=== PATIENT | female | born 1930 | race Hispanic/Latino ===

== ENCOUNTER 2018-08-27 17:25 | Observation (INO) | payer MEDICARE ==
[2018-08-27 17:26] VITALS: BMI 21.3
--- NOTE | 2018-08-27 18:16 | ED PDOC ---
Arrival/HPI - General Chief Complaint: GI Problem Time Seen by Provider: 08/27/18 17:36 Historian: Patient - History of Present Illness Narrative History of Present Illness (Text): 08/27/18 17:36 Yesenia Leahy is a 87 year female, with past medical history of hypertension, hyperlipidemia, vertigo, and hypothyroidism, who presents to the emergency department complaining of sudden onset dizziness occuring 3 hours CATCHER PLUG. Patient's daughter informs that patient first had abdominal pain which was followed by dizziness. Patient's daughter then states patient had vomiting and diarrhea after eating ice cream and pringles. Patient was covered in diarrhea and vomit when found by patient's daughter. Patient herself states she had flank pain, which was followed by dizziness, after which patient had vomiting and diarrhea after consuming ice cream and pringles. Patient states that she was unable to get out of bed due to dizziness. Patient states dizziness felt like vertigo, but did not get worse with certain head positions or movement. Patient informs symptoms have currently resolved in the emergency department. Patient does not live in a half-way. Patient does not take any blood thinners but takes aspirin and thyroid medications. No dark or bloody stool. Patient denies sick contact, traveling abroad, head injury, fall, visual changes, fevers, chills, night sweats, headache, back pain, neck pain, or any other complaint. 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) - Renal Hx Renal Disorder: No - Endocrine/Metabolic Hx Endocrine Disorders: Yes Hx Hypothyroidism: Yes - Hematological/Oncological Hx Blood Disorders: No - Integumentary Hx Dermatological Disorder: No - Musculoskeletal/Rheumatological Hx Musculoskeletal Disorders: No Hx Falls: No - Gastrointestinal Hx Gastrointestinal Disorders: Yes (Gastroenteritis) - Genitourinary/Gynecological Hx Genitourinary Disorders: No - Psychiatric Hx Psychophysiologic Disorder: Yes (Insomnia) Hx Substance Use: No - Anesthesia Hx Anesthesia Reactions: No Hx Malignant Hyperthermia: No - Suicidal Assessment Feels Threatened In Home Enviroment: No Family/Social History - Physician Review Nursing Documentation Reviewed: Yes Family/Social History: No Known Family HX Smoking Status: Never Smoked Hx Alcohol Use: No Hx Substance Use: No Hx Substance Use Treatment: No Allergies/Home Meds Allergies/Adverse Reactions: Allergies No Known Allergies Allergy (Verified 11/01/15 19:29) Home Medications: Home Meds Medication Instructions Recorded Confirmed Levothyroxine Sodium 88 mcg PO DAILY 04/13/13 11/02/15 [Levothyroxine] Zolpidem [Ambien] 5 mg PO HS 04/13/13 11/01/15 Amlodipine Besylate 5 mg PO DAILY 11/01/15 11/02/15 Pravastatin Sodium 20 mg PO DAILY 11/01/15 11/01/15 Vitamin D 1000 IU 1,000 iu PO DAILY 11/01/15 11/01/15 Meclizine HCl [Antivert/25] 25 mg PO TID 11/02/15 11/02/15 Review of Systems - Physician Review All systems were reviewed & negative as marked: Yes - Review of Systems Constitutional: absent: Fatigue, Weight Change, Fevers, Night Sweats Eyes: absent: Vision Changes, Photophobia, Eye Pain ENT: absent: Hearing Changes, Tinnitus, TMJ Pain Respiratory: absent: SOB, Cough, Sputum Cardiovascular: absent: Chest Pain, Palpitations, Edema, Calf Pain, LEN[place], Orthopnea Gastrointestinal: Abdominal Pain (stated by daughter), Diarrhea, Nausea, Vomiting, Other (Flank pain stated by patient). absent: Constipation, Hematochezia, Hematemesis, Anorexia Genitourinary Female: absent: Dysuria, Frequency, Hematuria Musculoskeletal: absent: Back Pain, Neck Pain, Other (head injury) Neurological: Dizziness (vertigo earlier) Physical Exam Vital Signs Reviewed: Yes Temperature: Afebrile Blood Pressure: Normal Pulse: Regular Respiratory Rate: Normal Appearance: Positive for: Well-Appearing, Non-Toxic, Comfortable Pain Distress: None Mental Status: Positive for: Alert and Oriented X 3 - Systems Exam Head: Present: Atraumatic, Normocephalic Pupils: Present: PERRL Extroacular Muscles: Present: EOMI Conjunctiva: Present: Normal Ears: Present: Normal. No: Erythema Mouth: Present: Moist Mucous Membranes Pharnyx: Present: Normal. No: ERYTHEMA, EXUDATE Nose (Internal): Present: Normal Inspection. No: Septal Hematoma Neck: Present: Normal Range of Motion. No: Meningeal Signs, MIDLINE TENDERNESS Respiratory/Chest: Present: Clear to Auscultation, Good Air Exchange. No: Respiratory Distress, Accessory Muscle Use Cardiovascular: Present: Regular Rate and Rhythm, Normal S1, S2. No: Murmurs Abdomen: No: Tenderness Back: Present: Normal Inspection. No: CVA Tenderness, Midline Tenderness Upper Extremity: Present: Normal Inspection, NORMAL PULSES, Neurovascularly Intact. No: Cyanosis, Edema Lower Extremity: Present: Normal Inspection, NORMAL PULSES, Neurovascularly Intact. No: Edema, CALF TENDERNESS Neurological: Present: GCS=15, CN II-XII Intact, Speech Normal, Motor Func Grossly Intact, Normal Sensory Function, Normal Cerebellar Funct Skin: Present: Warm, Dry, Normal Color. No: Rashes Psychiatric: Present: Alert, Oriented x 3, Normal Insight, Normal Concentration Medical Decision Making ED Course and Treatment: 08/27/18 17:36 Impression: Patient is an 87 year old female who presents to the emergency department with complaints of sudden onset dizziness 3 hours CATCHER PLUG. Pt states symptoms like vertigo, but did not get worse with head movement. No signs of posterior stroke on exam as symptoms have resolved. Normal neuro exam, largely non-ttp abdomen. No dark or bloody stool. No fall or trauma. Differential Diagnosis included but are not limited to: Posterior stroke, gastroenteritis, colitis Plan: -- CT Head w/o contrast -- Chest X-Ray -- Labs -- EKG -- Reglan -- IV Fluids -- Reassess and disposition Prior Visits: Notes and results from previous visits were reviewed. Progress Notes: 08/27/18 18:00 Code Stroke 08/27/18 18:19 NIHSS 0 No tPA at this time given symptoms resolved. Normal neuro exam. 08/27/18 19:06 CT H w/ out bleed or visible ischemic stroke. Appreciate consult w/ Dr. Izquierdo: requesting CTA head and neck and ASA. Pt notes she took her ASA this morning. Reviewed EKG, shows: NSR at 80 BPM. No STEMI 08/27/18 20:57 UTI, rx w/ cipro. no CVAT or midline tenderness. Xray chest unremarkable per my read Paged Dr. Galeana for admission 08/27/18 20:58 Pending CTA read 08/27/18 21:22 CT non-con abd w/ diverticulitis, will add flagyl CTA largely unremarkable except pulmonary nodule appreciate consult w/ Dr. Galeana: to admit to medicine service Pt in NAD, agreeable to admission - RAD Interpretation Radiology Orders: 08/27/18 18:05 CHEST PORTABLE [RAD] Stat - Medication Orders Current Medication Orders: Sodium Chloride (Sodium Chloride 0.9%) 1,000 mls @ 100 mls/hr IV .Q10H DUNCAN Discontinued Medications Metoclopramide HCl (Reglan) 10 mg IVP STAT STA Stop: 08/27/18 18:02 NIHSS Scale ([place]) Time Performed: 18:15 - How Severe is the Stoke Baseline Level of Consciousness: 0=Alert LOC to Questions: 0=Both comments correct LOC to commands: 0=Obeys both correctly Best Gaze: 0=Normal Visual: 0=No visual loss Facial: 0=Normal Motor Arm - Left: 0=No drift Motor Arm - Right: 0=No drift Motor Leg - Left: 0=No drift Motor Leg - Right: 0=No drift Limb Ataxia: 0=Absent Sensory: 0=Normal Best Language: 0=No aphasia Dysarthia: 0=Normal articulation Extinction & Inattention (Neglect): 0=Normal, no object Score: 0 Risk Level: No Stroke Risk rTPA Inclusion/Exclusion - Refusal of Treatment Patient Refused Treatment: No - Inclusion Criteria for Altepase Patient is 18 years or Older: Yes The Clinical Diagnosis of Ischemic Stroke That is Causing a Potentially Disabling Neurological Deficit: No Time of Onset is Well Established to be Less Than 270 Minute Before Treatment Would Begin: Yes Risk/Benefit Discussed With Patient/Family Member Present: Yes - Scribe Statement The provider has reviewed the documentation as recorded by the Scribe Mark Mcneal All medical record entries made by the Scribe were at my direction and personally dictated by me. I have reviewed the chart and agree that the record accurately reflects my personal performance of the history, physical exam, medical decision making, and the department course for this patient. I have also personally directed, reviewed, and agree with the discharge instructions and disposition. Disposition/Present on Arrival - Present on Arrival Any Indicators Present on Arrival: No History of DVT/PE: No History of Uncontrolled Diabetes: No Urinary Catheter: No History of Decub. Ulcer: No History Surgical Site Infection Following: CABG - Mediastinitis, None - Disposition Have Diagnosis and Disposition been Completed?: Yes Diagnosis: Vertigo, Acute diverticulitis, UTI (urinary tract infection) Disposition Time: 21:28 Condition: STABLE Referrals: Bne Galarza MD [Primary Care Provider] - Follow up with primary Forms: [employer]Less (Italian)
[2018-08-27 18:25] LABS: BASO # 0.05 K/mm3 (0.0-2.0); BASO % 0.4 % (0.0-3.0); EOS % 0.4 % (1.5-5.0); HEMOGLOBIN 12.9 g/dL (12.0-16.0); LYMPH # 1.5 (1.2-3.4); LYMPH % 13.3 % (22.0-35.0); MEAN CELL VOLUME 88.6 fl (80.0-105.0); MEAN CORPUSCULAR HEMOGLOBIN 29.5 pg (25.0-35.0); MEAN CORPUSCULAR HGB CONC 33.2 g/dl (31.0-37.0); MEAN PLATELET VOLUME 9.2 fl (7.0-11.0); MONO # 0.8 (0.1-0.6); MONO % 7.2 % (1.0-6.0); RBC 4.38 10^6/uL (3.5-6.1); RED CELL DISTRIBUTION WIDTH 13.2 % (11.5-14.5); WHITE BLOOD COUNT 11.3 10^3/uL (4.5-11.0)
[2018-08-27 18:32] LABS: ALB/GLOB RATIO 1.3 (1.1-1.8); ALBUMIN 5.2 g/dL (3.0-4.8); ALT/SGPT 16 U/L (7-56); AST/SGOT 33 U/L (14-36); BLOOD UREA NITROGEN 14 mg/dL (7-21); CALCIUM 9.9 mg/dL (8.4-10.5); GFR NON-AFRICAN AMERICAN > 60; LIPASE 154 U/L (23-300)
[2018-08-27 18:34] LABS: VENOUS BLOOD GAS BASE EXCESS 3.2 mmol/L (0.0-2.0); VENOUS BLOOD GAS PO2 46 mm/Hg (30-55); VENOUS BLOOD PH 7.36 (7.32-7.43)
--- NOTE | 2018-08-27 18:36 | CT ---
Date of service: 08/27/2018 PROCEDURE: CT HEAD WITHOUT CONTRAST. HISTORY: Code Stroke COMPARISON: 11/01/2015. CT head. 11/02/2015 MRI brain TECHNIQUE: Axial computed tomography images were obtained through the head/brain without intravenous contrast. Supplemental Coronal and Sagittal projections created and reviewed. Radiation dose: Total exam DLP = <inf_radiation_dlp> mGy-cm. This CT exam was performed using one or more of the following dose reduction techniques: Automated exposure control, adjustment of the mA and/or kV according to patient size, and/or use of iterative reconstruction technique. FINDINGS: HEMORRHAGE: No intracranial hemorrhage. BRAIN: No mass effect or edema. Cortical and cerebellar atrophy, periventricular small vessel disease. VENTRICLES: Unremarkable. No hydrocephalus. CALVARIUM: Unremarkable. PARANASAL SINUSES: Unremarkable as visualized. No significant inflammatory changes. MASTOID AIR CELLS: Unremarkable as visualized. No inflammatory changes. OTHER FINDINGS: None. IMPRESSION: No acute intracranial abnormalities. No significant findings to account for the clinical presentation. No significant interval change compared to the prior examination(s). Code stroke protocol: Study completed 18:23. Radiologist notified 18:26. Results conveyed verbally at 18:29. Interpretation finalized and available for review 18:32.
[2018-08-27 18:43] LABS: INR 1.11; PARTIAL THROMBOPLASTIN TIME 33.3 Seconds (26.9-38.3); PROTHROMBIN TIME 12.3 SECONDS (9.4-12.5)
[2018-08-27] MEDS: Sodium Chloride 0.9% 1,000 ML IV SCH (18:59)
[2018-08-27 19:22] LABS: PH,URINE 7.5 (4.7-8.0); URINE APPEARANCE CLEAR (CLEAR); URINE BILIRUBIN NEGATIVE (NEGATIVE); URINE BLOOD NEGATIVE (NEGATIVE); URINE COLOR YELLOW (YELLOW); URINE GLUCOSE (UA) NEGATIVE (NEGATIVE); URINE LEUKOCYTE ESTERASE SMALL Leu/uL (NEGATIVE); URINE PROTEIN NEGATIVE mg/dL (<30 mg/dL); URINE UROBILINOGEN 0.2 E.U./dL (<1 E.U./dL)
[2018-08-27 19:31] LABS: TROPONIN I < 0.01 ng/mL
[2018-08-27 19:44] LABS: URINE AMORPHOUS SEDIMENT TRACE /hpf
[2018-08-27] MEDS ORDERED: Ciprofloxacin 400mg/200ml D5W 400 MG/200 ML BAG IVPB STA (19:48)
[2018-08-27] MEDS ORDERED: Iohexol 350 MG/100 ML VIAL ONE (19:49)
--- NOTE | 2018-08-27 21:10 | CP.PCM.HP ---
<MichealPrimitivo - Last Filed: 08/28/18 03:27> History of Present Illness - History of Present Illness History of Present Illness: Primitivo Burton, PGY1 Medicine H&P for Dr. Galeana cc: "dizziness with nausea, vomiting, diarrhea" Patient is a 87 year female with PMHx of hypertension, hyperlipidemia, vertigo, and hypothyroidism, who presents to the emergency department complaining of sudden onset dizziness with associated nausea, vomiting, diarrhea earlier today. Patient was covered in diarrhea and vomit when found by the patient's daughter. Medical team evaluated patient in the ED. Daughter was present at bedside. Patient is awake, alert, and oriented x3. She said her episodes started at 3 pm when she was watching television. Vomiting was non-bilious and non-bloody. She did not have any chest pain, shortness of breath, abdominal pain, back pain, fever, chills, urinary frequency/urgency/dysuria. She does not have any sick contacts. In the ED, her symptoms resolved. She has not had any further episodes of vomiting or diarrhea. She denies any recent antibiotic use. Patient had previous admission in 2016 for vertigo and was discharged on meclizine which she stopped taking after one week because her symptoms resolved. A full 12 point ROS was conducted and unremarkable except as stated above. PMD: [place] PMHx: hypertension, hyperlipidemia, vertigo, and hypothyroidism PSHx: denies Meds: see MAR Allergies: NKDA SocialHx: denies smoking, EtOH, illicit drug use. Lives at home with daughter. FamHx: non-contributory Present on Admission - Present on Admission Any Indicators Present on Admission: No Review of Systems - Review of Systems All systems: reviewed and no additional remarkable complaints except (as per HPI.) Past Patient History - Infectious Disease Hx of Infectious Diseases: None - Tetanus Immunizations Tetanus Immunization: Unknown - Past Social History Smoking Status: Never Smoked - CARDIAC Hx Cardiac Disorders: Yes Hx Hypertension: Yes - PULMONARY Hx Respiratory Disorders: No (SMOKED CIGARETTES A TEENAGER) - NEUROLOGICAL Hx Neurological Disorder: Yes Hx Dizziness: Yes (5-2-16) - HEENT Hx HEENT Problems: Yes Hx Deafness: Yes (RIGHT EAR,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) - RENAL Hx Chronic Kidney Disease: No - ENDOCRINE/METABOLIC Hx Endocrine Disorders: Yes Hx Hypothyroidism: Yes - HEMATOLOGICAL/ONCOLOGICAL Hx Blood Disorders: No - INTEGUMENTARY Hx Dermatological Problems: No - MUSCULOSKELETAL/RHEUMATOLOGICAL Hx Musculoskeletal Disorders: No Hx Falls: No - GASTROINTESTINAL Hx Gastrointestinal Disorders: Yes (Gastroenteritis) - GENITOURINARY/GYNECOLOGICAL Hx Genitourinary Disorders: No - PSYCHIATRIC Hx Psychophysiologic Disorder: Yes (Insomnia) Hx Substance Use: No - SURGICAL HISTORY Hx Surgeries: No (Denies) - ANESTHESIA Hx Anesthesia Reactions: No Hx Malignant Hyperthermia: No Meds Allergies/Adverse Reactions: Allergies Allergy/AdvReac Type Severity Reaction Status Date / Time No Known Allergies Allergy Verified 11/01/15 19:29 Physical Exam - Constitutional Appears: No Acute Distress - Head Exam Head Exam: ATRAUMATIC, NORMAL INSPECTION, NORMOCEPHALIC - Eye Exam Eye Exam: EOMI, Normal appearance Pupil Exam: NORMAL ACCOMODATION - ENT Exam ENT Exam: Mucous Membranes Moist - Respiratory Exam Respiratory Exam: Clear to Auscultation Bilateral, NORMAL BREATHING PATTERN. absent: Accessory Muscle Use, Chest Wall Tenderness, Rales, Rhonchi, Wheezes - Cardiovascular Exam Cardiovascular Exam: RRR, +S1, +S2 - GI/Abdominal Exam GI & Abdominal Exam: Normal Bowel Sounds, Soft. absent: Distended, Firm, Guarding, Rebound, Rigid, Tenderness Additional comments: No suprapubic tenderness - Extremities Exam Extremities exam: Positive for: full ROM, normal capillary refill, normal inspection, pedal pulses present - Back Exam Back exam: NORMAL INSPECTION. absent: CVA tenderness (L), CVA tenderness (R) - Neurological Exam Neurological exam: Alert, CN II-XII Intact, Oriented x3 - Psychiatric Exam Psychiatric exam: Normal Affect, Normal Mood - Skin Skin Exam: Dry, Intact, Normal Color, Warm Results - Vital Signs Recent Vital Signs: Last Vital Signs Temp 95 F L 08/27/18 18:19 Pulse 77 08/27/18 19:30 Resp 17 08/27/18 19:30 BP 117/89 08/27/18 19:30 Pulse Ox 98 08/27/18 19:30 - Labs Result Diagrams: 08/27/18 18:15 08/27/18 18:15 Labs: Laboratory Results - last 24 hr 08/27/18 08/27/18 08/27/18 17:59 18:15 18:15 WBC 11.3 H RBC 4.38 Hgb 12.9 Hct 38.8 MCV 88.6 MCH 29.5 MCHC 33.2 RDW 13.2 Plt Count 239 MPV 9.2 Neut % (Auto) 78.7 H Lymph % (Auto) 13.3 L [place] % (Auto) 7.2 H Eos % (Auto) 0.4 L Baso % (Auto) 0.4 Lymph # (Auto) 1.5 [place] # (Auto) 0.8 H Eos # (Auto) 0.0 Baso # (Auto) 0.05 Absolute Neuts (auto) 8.89 H PT INR APTT pO2 VBG pH VBG pCO2 VBG HCO3 VBG Total CO2 VBG O2 Sat (Calc) VBG Base Excess VBG Potassium Sodium 140 Chloride 101 Glucose Lactate FiO2 Potassium 3.2 L Carbon Dioxide 30 Anion Gap 13 BUN 14 Creatinine 0.6 L Est GFR ( Amer) > 60 Est GFR (Non-Af Amer) > 60 POC Glucose (mg/dL) 142 H Random Glucose 155 H Calcium 9.9 Magnesium 2.0 Total Bilirubin 0.5 AST 33 ALT 16 Alkaline Phosphatase 85 Troponin I < 0.01 Total Protein 9.0 H Albumin 5.2 H Globulin 3.8 Albumin/Globulin Ratio 1.3 Lipase 154 TSH 3rd Generation Venous Blood Potassium Urine Color Urine Appearance Urine pH Ur Specific [place] Urine Protein Urine Glucose (UA) Urine Ketones Urine Blood Urine Nitrate Urine Bilirubin Urine Urobilinogen Ur Leukocyte Esterase Urine RBC Urine WBC Ur Epithelial Cells Amorphous Sediment Influenza Typ A,B (EIA) 08/27/18 08/27/18 08/27/18 18:15 18:15 18:28 WBC RBC Hgb Hct MCV MCH MCHC RDW Plt Count MPV Neut % (Auto) Lymph % (Auto) [place] % (Auto) Eos % (Auto) Baso % (Auto) Lymph # (Auto) [place] # (Auto) Eos # (Auto) Baso # (Auto) Absolute Neuts (auto) PT 12.3 INR 1.11 APTT 33.3 pO2 46 VBG pH 7.36 VBG pCO2 53.0 VBG HCO3 29.9 H VBG Total CO2 31.5 H VBG O2 Sat (Calc) 85.6 H VBG Base Excess 3.2 H VBG Potassium 3.2 L Sodium 143.0 Chloride 103.0 Glucose 153 H Lactate 1.4 FiO2 21.0 Potassium Carbon Dioxide Anion Gap BUN Creatinine Est GFR ( Amer) Est GFR (Non-Af Amer) POC Glucose (mg/dL) Random Glucose Calcium Magnesium Total Bilirubin AST ALT Alkaline Phosphatase Troponin I Total Protein Albumin Globulin Albumin/Globulin Ratio Lipase TSH 3rd Generation 1.58 Venous Blood Potassium 3.2 L Urine Color Urine Appearance Urine pH Ur Specific [place] Urine Protein Urine Glucose (UA) Urine Ketones Urine Blood Urine Nitrate Urine Bilirubin Urine Urobilinogen Ur Leukocyte Esterase Urine RBC Urine WBC Ur Epithelial Cells Amorphous Sediment Influenza Typ A,B (EIA) 08/27/18 08/27/18 19:10 19:57 WBC RBC Hgb Hct MCV MCH MCHC RDW Plt Count MPV Neut % (Auto) Lymph % (Auto) [place] % (Auto) Eos % (Auto) Baso % (Auto) Lymph # (Auto) [place] # (Auto) Eos # (Auto) Baso # (Auto) Absolute Neuts (auto) PT INR APTT pO2 VBG pH VBG pCO2 VBG HCO3 VBG Total CO2 VBG O2 Sat (Calc) VBG Base Excess VBG Potassium Sodium Chloride Glucose Lactate FiO2 Potassium Carbon Dioxide Anion Gap BUN Creatinine Est GFR ( Amer) Est GFR (Non-Af Amer) POC Glucose (mg/dL) Random Glucose Calcium Magnesium Total Bilirubin AST ALT Alkaline Phosphatase Troponin I Total Protein Albumin Globulin Albumin/Globulin Ratio Lipase TSH 3rd Generation Venous Blood Potassium Urine Color Yellow Urine Appearance Clear Urine pH 7.5 Ur Specific [place] 1.020 Urine Protein Negative Urine Glucose (UA) Negative Urine Ketones 15 H Urine Blood Negative Urine Nitrate Negative Urine Bilirubin Negative Urine Urobilinogen 0.2 Ur Leukocyte Esterase Small H Urine RBC None Urine WBC 10 - 15 H Ur Epithelial Cells 10 - 12 H Amorphous Sediment Trace Influenza Typ A,B (EIA) Negative for flu a/b Assessment & Plan - Assessment and Plan (Free Text) Assessment: Patient is a 87 year female, with PMHx of hypertension, hyperlipidemia, vertigo, and hypothyroidism, who presented to the emergency department complaining of sudden onset dizziness with associated nausea, vomiting, diarrhea earlier today. Patient will be admitted for vertigo. Plan: Vertigo - Symptoms resolved in the ED - orthostatic vital signs - echo - Neurochecks q4 - fall and seizure precautions - trend trops q6 - Code stroke in ED - Passed swallow eval - PT - resume aspirin 81mg PO daily home med - Neuro on consult (Dr. Izquierdo) - f/u Head/Neck CTA - Head CT: no acute abnormalities SIRS Criteria Met, Possible UTI - SIRS met with low temperature and mildly elevated leukocytosis on admission (wbc 11.3) - Initial temp was 95 in ED; improved to 97.8 most recent. Maintain normothermia. - Vomiting and diarrhea resoled in the ED - blood cx - urine cx - morning labs - NS maintenance IVF - Given cipro and flagyl in ED; c/w cipro IVPB q12 - UA: 10-15 wbc, 10-12 epithelial (contaminated), small LE - flu negative - f/u CT A/P - CXR: no consolidation or infiltrate - EKG: NSR at 80 bpm. QTc 491. Will avoid zofran at this time due to prolonged QT. Hypokalemia 2/2 vomiting - replete Potassium as needed - K 3.2 in ED HTN - resume norvasc 10mg PO daily home med HLD - resume lipitor 10mg PO qHS home med - lipid panel Hypothyroidism - resume synthroid home med DVT ppx: hep sc GI ppx: PTX 40mg PO daily Diet: HHD Dispo: Monitor patient on tele. Case was discussed and reviewed with Attending Physician, Dr. Galeana <Maureen Galeana - Last Filed: 08/28/18 05:38> Results - Vital Signs Recent Vital Signs: Last Vital Signs Temp 97.8 F 08/28/18 00:01 Pulse 67 08/28/18 02:00 Resp 18 08/28/18 00:01 BP 139/80 08/28/18 00:01 Pulse Ox 98 08/28/18 00:01 - Labs Result Diagrams: 08/27/18 18:15 08/27/18 18:15 Labs: Laboratory Results - last 24 hr 08/27/18 08/27/18 08/27/18 17:59 18:15 18:15 WBC 11.3 H RBC 4.38 Hgb 12.9 Hct 38.8 MCV 88.6 MCH 29.5 MCHC 33.2 RDW 13.2 Plt Count 239 MPV 9.2 Neut % (Auto) 78.7 H Lymph % (Auto) 13.3 L [place] % (Auto) 7.2 H Eos % (Auto) 0.4 L Baso % (Auto) 0.4 Lymph # (Auto) 1.5 [place] # (Auto) 0.8 H Eos # (Auto) 0.0 Baso # (Auto) 0.05 Absolute Neuts (auto) 8.89 H PT INR APTT pO2 VBG pH VBG pCO2 VBG HCO3 VBG Total CO2 VBG O2 Sat (Calc) VBG Base Excess VBG Potassium Sodium 140 Chloride 101 Glucose Lactate FiO2 Potassium 3.2 L Carbon Dioxide 30 Anion Gap 13 BUN 14 Creatinine 0.6 L Est GFR ( Amer) > 60 Est GFR (Non-Af Amer) > 60 POC Glucose (mg/dL) 142 H Random Glucose 155 H Calcium 9.9 Magnesium 2.0 Total Bilirubin 0.5 AST 33 ALT 16 Alkaline Phosphatase 85 Troponin I < 0.01 Total Protein 9.0 H Albumin 5.2 H Globulin 3.8 Albumin/Globulin Ratio 1.3 Lipase 154 TSH 3rd Generation Venous Blood Potassium Urine Color Urine Appearance Urine pH Ur Specific [place] Urine Protein Urine Glucose (UA) Urine Ketones Urine Blood Urine Nitrate Urine Bilirubin Urine Urobilinogen Ur Leukocyte Esterase Urine RBC Urine WBC Ur Epithelial Cells Amorphous Sediment Influenza Typ A,B (EIA) 08/27/18 08/27/18 08/27/18 18:15 18:15 18:28 WBC RBC Hgb Hct MCV MCH MCHC RDW Plt Count MPV Neut % (Auto) Lymph % (Auto) [place] % (Auto) Eos % (Auto) Baso % (Auto) Lymph # (Auto) [place] # (Auto) Eos # (Auto) Baso # (Auto) Absolute Neuts (auto) PT 12.3 INR 1.11 APTT 33.3 pO2 46 VBG pH 7.36 VBG pCO2 53.0 VBG HCO3 29.9 H VBG Total CO2 31.5 H VBG O2 Sat (Calc) 85.6 H VBG Base Excess 3.2 H VBG Potassium 3.2 L Sodium 143.0 Chloride 103.0 Glucose 153 H Lactate 1.4 FiO2 21.0 Potassium Carbon Dioxide Anion Gap BUN Creatinine Est GFR ( Amer) Est GFR (Non-Af Amer) POC Glucose (mg/dL) Random Glucose Calcium Magnesium Total Bilirubin AST ALT Alkaline Phosphatase Troponin I Total Protein Albumin Globulin Albumin/Globulin Ratio Lipase TSH 3rd Generation 1.58 Venous Blood Potassium 3.2 L Urine Color Urine Appearance Urine pH Ur Specific [place] Urine Protein Urine Glucose (UA) Urine Ketones Urine Blood Urine Nitrate Urine Bilirubin Urine Urobilinogen Ur Leukocyte Esterase Urine RBC Urine WBC Ur Epithelial Cells Amorphous Sediment Influenza Typ A,B (EIA) 08/27/18 08/27/18 08/28/18 19:10 19:57 00:50 WBC RBC Hgb Hct MCV MCH MCHC RDW Plt Count MPV Neut % (Auto) Lymph % (Auto) [place] % (Auto) Eos % (Auto) Baso % (Auto) Lymph # (Auto) [place] # (Auto) Eos # (Auto) Baso # (Auto) Absolute Neuts (auto) PT INR APTT pO2 VBG pH VBG pCO2 VBG HCO3 VBG Total CO2 VBG O2 Sat (Calc) VBG Base Excess VBG Potassium Sodium Chloride Glucose Lactate FiO2 Potassium Carbon Dioxide Anion Gap BUN Creatinine Est GFR ( Amer) Est GFR (Non-Af Amer) POC Glucose (mg/dL) Random Glucose Calcium Magnesium Total Bilirubin AST ALT Alkaline Phosphatase Troponin I < 0.01 Total Protein Albumin Globulin Albumin/Globulin Ratio Lipase TSH 3rd Generation Venous Blood Potassium Urine Color Yellow Urine Appearance Clear Urine pH 7.5 Ur Specific [place] 1.020 Urine Protein Negative Urine Glucose (UA) Negative Urine Ketones 15 H Urine Blood Negative Urine Nitrate Negative Urine Bilirubin Negative Urine Urobilinogen 0.2 Ur Leukocyte Esterase Small H Urine RBC None Urine WBC 10 - 15 H Ur Epithelial Cells 10 - 12 H Amorphous Sediment Trace Influenza Typ A,B (EIA) Negative for flu a/b Attending/Attestation - Attestation I have personally seen and examined this patient.: Yes I have fully participated in the care of the patient.: Yes I have reviewed all pertinent clinical information: Yes Notes (Text): 08/28/18 05:21 Note: Physical exam reveals pupils that are equal and reactive. Pt seen with the resident by the bedside. Case discussed in detail. Agree with rest of documentation,assessment and plan of treatment. 08/28/18 05:22
[2018-08-27] MEDS ORDERED: metroNIDAZOLE IV 500 mg/100 ml 500 MG/100 ML BAG IVPB STA (21:28)
[2018-08-27] MEDS ORDERED: Potassium Chloride 40 mEq/30 ml LIQ UD PO ONE (22:39)
[2018-08-28] MEDS: Pantoprazole 40 mg EC Tab PO SCH (05:40)
[2018-08-28] MEDS ORDERED: Levothyroxine 50 MCG TAB PO SCH ×2 (06:00)
[2018-08-28 06:15] LABS: BASO # 0.05 K/mm3 (0.0-2.0); BASO % 0.6 % (0.0-3.0); EOS % 0.4 % (1.5-5.0); HEMOGLOBIN 12.3 g/dL (12.0-16.0); LYMPH # 1.7 (1.2-3.4); MEAN CELL VOLUME 87.9 fl (80.0-105.0); MEAN CORPUSCULAR HEMOGLOBIN 29.3 pg (25.0-35.0); MEAN CORPUSCULAR HGB CONC 33.3 g/dl (31.0-37.0); MEAN PLATELET VOLUME 9.4 fl (7.0-11.0); MONO # 0.8 (0.1-0.6); MONO % 10.2 % (1.0-6.0); RBC 4.2 10^6/uL (3.5-6.1); RED CELL DISTRIBUTION WIDTH 13.1 % (11.5-14.5); WHITE BLOOD COUNT 7.8 10^3/uL (4.5-11.0)
[2018-08-28 06:56] LABS: TROPONIN I < 0.01 ng/mL
[2018-08-28 07:00] LABS: LDL CHOLESTEROL 74 mg/dL (0-129)
[2018-08-28 07:01] LABS: ALB/GLOB RATIO 1.3 (1.1-1.8); ALBUMIN 4.5 g/dL (3.0-4.8); ALT/SGPT 13 U/L (7-56); AST/SGOT 27 U/L (14-36); BLOOD UREA NITROGEN 10 mg/dL (7-21); CALCIUM 9.6 mg/dL (8.4-10.5); GFR NON-AFRICAN AMERICAN > 60; HDL CHOLESTEROL 73 mg/dL (29-60)
--- NOTE | 2018-08-28 07:25 | CP.PCM.PN ---
<Sunday Dixon L - Last Filed: 08/28/18 17:25> Subjective - Date & Time of Evaluation Date of Evaluation: 08/28/18 Time of Evaluation: 07:25 - Subjective Subjective: Resident Progress Note for Hospitalist Service Patient examined at bedside. No acute events overnight. Patient offers no symptomatic complaints and denies any further episodes of dizziness, nausea, or vomiting. Patient also denies fevers, chills, chest pain, shortness of breath, abdominal pain, diarrhea, dysuria. Objective - Vital Signs/Intake and Output Vital Signs (last 24 hours): Temp Pulse Resp BP Pulse Ox 98.0 F 68 19 127/68 99 08/28/18 06:00 08/28/18 06:00 08/28/18 06:00 08/28/18 06:00 08/28/18 06:00 Intake and Output: 08/28/18 08/28/18 06:59 18:59 Intake Total 800 Balance 800 - Medications Medications: Current Medications Amlodipine Besylate (Norvasc) 10 mg PO DAILY [facility] Aspirin (Aspirin Chewable) 81 mg PO DAILY [facility] Atorvastatin Calcium (Lipitor) 10 mg PO DIN [facility] Heparin Sodium (Porcine) (Heparin) 5,000 units SC Q12 [facility]; Protocol Sodium Chloride (Sodium Chloride 0.9%) 1,000 mls @ 100 mls/hr IV .Q10H [facility] Last Admin: 08/27/18 18:59 Dose: 100 mls/hr Ciprofloxacin (Cipro 400mg/200ml Dsw) 400 mg in 200 mls @ 133.3 mls/hr IVPB Q12 [facility]; Protocol Stop: 08/28/18 11:31 Levothyroxine Sodium (Synthroid) 50 mcg PO QOTHERDAY@0600 [facility] Last Admin: 08/28/18 05:40 Dose: 50 mcg Levothyroxine Sodium (Synthroid) 75 mcg PO QOTHERDAY@0600 [facility] Pantoprazole Sodium (Protonix Ec Tab) 40 mg PO 0600 [facility] Last Admin: 08/28/18 05:40 Dose: 40 mg Zolpidem Tartrate (Ambien) 5 mg PO HS PRN; Protocol PRN Reason: Sleep - Labs Labs: 08/28/18 05:55 08/28/18 05:55 PT 12.3 SECONDS (9.4-12.5) 08/27/18 18:28 INR 1.11 02/26/19 18:28 APTT 33.3 Seconds (26.9-38.3) 08/27/18 18:28 - Constitutional Appears: No Acute Distress - Head Exam Head Exam: ATRAUMATIC, NORMOCEPHALIC - Eye Exam Eye Exam: EOMI, Normal appearance - ENT Exam ENT Exam: Mucous Membranes Moist - Respiratory Exam Respiratory Exam: Clear to Auscultation Bilateral, NORMAL BREATHING PATTERN. absent: Accessory Muscle Use, Rales, Rhonchi, Wheezes - Cardiovascular Exam Cardiovascular Exam: RRR, +S1, +S2. absent: Systolic Murmurs - GI/Abdominal Exam GI & Abdominal Exam: Normal Bowel Sounds, Soft. absent: Distended, Firm, Guarding, Rebound, Rigid, Tenderness - Extremities Exam Extremities exam: Positive for: full ROM, normal capillary refill, normal inspection, pedal pulses present - Back Exam Back exam: NORMAL INSPECTION. absent: CVA tenderness (L), CVA tenderness (R) - Neurological Exam Neurological exam: Alert, CN II-XII Intact, Oriented x3 - Psychiatric Exam Psychiatric exam: Normal Affect, Normal Mood - Skin Skin Exam: Dry, Intact, Normal Color, Warm Assessment and Plan - Assessment and Plan (Free Text) Assessment: Patient is a 87 year female, with PMHx of hypertension, hyperlipidemia, vertigo, and hypothyroidism, who presented to the emergency department complaining of sudden onset dizziness with associated nausea, vomiting, diarrhea earlier today. Patient will be admitted for vertigo. Plan: Vertigo - Symptoms resolved in the ED - orthostatic hypotension positive - ECHO normal left ventricular function - Neurology consulted. Recs appreciated. - Head/neck CTA negative for stenosis, 8x14 mm nodule - Head CT shows no acute abnormalities - PT eval SIRS positive - SIRS met with low temperature and mildly elevated leukocytosis on admission - maintain normothermia - leukocytosis resolved - followup cultures - IVF - s/p cipro and flagyl in ED; c/w cipro IVPB q12 - UA: 10-15 wbc, 10-12 epithelial (contaminated), small LE - flu negative - CT abd/pelvis shows extensive diverticulosis - CXR: no consolidation or infiltrate Hypokalemia - monitor and replete HTN - continue home Norvasc 10 mg PO daily HLD - continue Lipitor 10 mg PO qHS - lipid panel within normal limits Hypothyroidism - resume home synthroid PPX: - Heparin 5000 units SC Q12 - Protonix 40 mg PO daily Case discussed with Dr. Michaela Dixon PGY-1 <Curt Jennings - Last Filed: 09/02/18 07:52> Objective - Vital Signs/Intake and Output Vital Signs (last 24 hours): Temp Pulse Resp BP Pulse Ox 97.1 F L 71 20 125/71 95 08/29/18 12:00 08/29/18 12:00 08/29/18 12:00 08/29/18 12:00 08/29/18 05:43 - Labs Labs: 08/29/18 06:20 08/29/18 06:20 PT 12.3 SECONDS (9.4-12.5) 08/27/18 18:28 INR 1.11 08/27/18 18:28 APTT 33.3 Seconds (26.9-38.3) 08/27/18 18:28 Attending/Attestation - Attestation I have personally seen and examined this patient.: Yes I have fully participated in the care of the patient.: Yes I have reviewed all pertinent clinical information, including history, physical exam and plan: Yes Notes (Text): 09/02/18 07:48 Attending note; Patient seen and examined with resident. Patient is alert and awake. Currently denies any dizziness. Denies any nausea, vomiting. Denies any fevers, chills. Patient is a 87 year female, with PMHx of hypertension, hyperlipidemia, vertigo, and hypothyroidism, who presented to the emergency department complaining of sudden onset dizziness with associated nausea, vomiting, diarrhea earlier today. Patient will be admitted for vertigo. 1. Dizziness; secondary to intravascular volume loss due to diarrhea. Patient also has significant orthostatic hypotension. Continue IV fluids. Monitor closely. Fall precautions. 2. Hypertension: hold Norvasc for now. 3. Leukocytosis; patient is afebrile nontoxic. Monitor closely. 4. Neurology evaluation appreciated. CT head is negative. MRI ordered. echocardiogram is pending. PT evaluation requested. Upon discharge The patient will follow up with PMD Dr. Galarza.
--- NOTE | 2018-08-28 08:14 | CARD ---
APPROVED REPORT Date of service: 08/27/2018 EKG Measurement Heart [id number] <Conclusion> Normal sinus rhythm ST abnormality, possible digitalis effect Prolonged QT Abnormal ECG
--- NOTE | 2018-08-28 08:28 | RAD ---
Date of service: 08/27/2018 HISTORY: vomit COMPARISON: Chest radiograph 11/02/2015. FINDINGS: LUNGS: No active pulmonary disease. Biapical fibrotic changes reiterated. PLEURA: No significant pleural effusion identified, no pneumothorax apparent. CARDIOVASCULAR: No aortic atherosclerotic calcification present. Normal cardiac size. No pulmonary vascular congestion. OSSEOUS STRUCTURES: No significant abnormalities. VISUALIZED UPPER ABDOMEN: Normal. OTHER FINDINGS: None. IMPRESSION: Biapical fibrotic changes reiterated. No interval acute cardiopulmonary disease appreciated.
--- NOTE | 2018-08-28 09:45 | CT ---
Date of service: 08/27/2018 PROCEDURE: CT Angiography of the neck with contrast HISTORY: n/v, sudden onset vertigo COMPARISON: None. TECHNIQUE: Contiguous axial images of the neck were obtained from the level of the skull-base to the superior mediastinum in the arteriographic phase of enhancement. Coronal and sagittal reformats or also generated. IV contrast dose: Radiation dose: Total exam DLP = 305.85 mGy-cm. This CT exam was performed using one or more of the following dose reduction techniques: Automated exposure control, adjustment of the mA and/or kV according to patient size, and/or use of iterative reconstruction technique. FINDINGS: RIGHT CAROTID ARTERIES: Common Carotid Artery: Normal. Carotid Bifurcation: Normal. Internal Carotid Artery:Normal. External Carotid Artery (proximal branches): Normal. LEFT CAROTID ARTERIES: Common Carotid Artery: Normal. Carotid Bifurcation: Calcified plaque without stenosis Internal Carotid Artery:Normal. External Carotid Artery (proximal branches): Normal. VERTEBRAL ARTERIES: Right Vertebral Artery: Normal. Left Vertebral Artery: Normal. OTHER FINDINGS: Aortic calcifications are seen. There is an 8 x 14 mm nodule in the posterior left upper lobe. Further evaluation is recommended. IMPRESSION: No significant stenosis CT Angiography of the Brain. HISTORY: n/v, sudden onset vertigo COMPARISON: None available. TECHNIQUE: CT angiography of the intracranial arteries was performed. Coronal and sagittal maximum intensity projection reformated images were generated. Radiation dose: Total exam DLP = 305.85 mGy-cm. This CT exam was performed using one or more of the following dose reduction techniques: Automated exposure control, adjustment of the mA and/or kV according to patient size, and/or use of iterative reconstruction technique. FINDINGS: INTERNAL CEREBRAL ARTERIES: Unremarkable. The skull base, petrous, cavernous and supraclinoid segments are bilaterally widely patent. ANTERIOR CEREBRAL ARTERIES: Unremarkable. A1 and A2 segments are widely patent. Smaller distal branches unremarkable, as visualized. MIDDLE CEREBRAL ARTERIES: Unremarkable. M1 and M2 segments are widely patent. Perisylvian branches grossly symmetric. POSTERIOR CIRCULATION: Basilar Artery: Unremarkable. Distal Vertebral Arteries: Unremarkable. Posterior Cerebral Arteries: Unremarkable. Posterior Inferior Cerebellar Arteries: Unremarkable. ANEURYSM/ VASCULAR MALFORMATIONS: None. OTHER FINDINGS: The report concurs with the preliminary [facility] report IMPRESSION: No significant stenosis There is an 8 x 14 mm nodule in the posterior left upper lobe. Further evaluation is recommended.
--- NOTE | 2018-08-28 09:50 | CT ---
Date of service: 08/27/2018 PROCEDURE: CT Abdomen and Pelvis without intravenous contrast HISTORY: n/v/ diarrhea COMPARISON: None. TECHNIQUE: Without contrast.. Contrast dose: Radiation dose: Total exam DLP = 224.88 mGy-cm. This CT exam was performed using one or more of the following dose reduction techniques: Automated exposure control, adjustment of the mA and/or kV according to patient size, and/or use of iterative reconstruction technique. FINDINGS: LOWER THORAX: Unremarkable. LIVER: Unremarkable. No gross lesion or ductal dilatation. GALLBLADDER AND BILE DUCTS: Large gallstone measuring 2.2 x 2.7 cm PANCREAS: Unremarkable. No gross lesion or ductal dilatation. SPLEEN: Unremarkable. ADRENALS: Unremarkable. No mass. KIDNEYS AND URETERS: Unremarkable. No hydronephrosis. No solid mass. VASCULATURE: Unremarkable. No aortic aneurysm. No aortic atherosclerotic calcification or mural plaque present. BOWEL: Unremarkable. No obstruction. No gross mural thickening. Severe diverticulosis of the descending and sigmoid colon. APPENDIX: Unremarkable. Normal appendix. PERITONEUM: Unremarkable. No free fluid. No free air. 2.4 cm mesenteric cyst on the left. This is of doubtful significance LYMPH NODES: Unremarkable. No enlarged lymph nodes. BLADDER: Unremarkable. REPRODUCTIVE: Unremarkable. BONES: No acute fracture. OTHER FINDINGS: IMPRESSION: No acute intra-abdominal findings. Extensive diverticulosis of the descending and sigmoid colon with no definite evidence of diverticulitis
[2018-08-28] MEDS: Sodium Chloride 0.9% 1,000 ML IV SCH ×2 (09:53→22:26)
[2018-08-28] MEDS ORDERED: Ciprofloxacin 400mg/200ml D5W 400 MG/200 ML BAG IVPB SCH (10:00)
--- NOTE | 2018-08-28 11:26 | CP.PCM.CON ---
History of Present Illness - History of Present Illness History of Present Illness: Neurology Consultation Note: Consult requested by Dr. Sirisha Garcia Mrs. Leahy is an 87-year-old woman with a past medical history of hypertension, hyperlipidemia, vertigo, and hypothyroidism, who presents to the emergency department complaining of sudden onset dizziness with associated nausea, vomiting, diarrhea yesterday. There was concern that the vertigo could be of a central cause and a CT and CTA of the head/neck were done and were normal. 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) - RENAL Hx Chronic Kidney Disease: No - ENDOCRINE/METABOLIC Hx Endocrine Disorders: Yes Hx Hypothyroidism: Yes - HEMATOLOGICAL/ONCOLOGICAL Hx Blood Disorders: No - INTEGUMENTARY Hx Dermatological Problems: No - MUSCULOSKELETAL/RHEUMATOLOGICAL Hx Musculoskeletal Disorders: No Hx Falls: No - GASTROINTESTINAL Hx Gastrointestinal Disorders: Yes (Gastroenteritis) - GENITOURINARY/GYNECOLOGICAL Hx Genitourinary Disorders: No - PSYCHIATRIC Hx Psychophysiologic Disorder: Yes (Insomnia) Hx Substance Use: No - SURGICAL HISTORY Hx Surgeries: No (Denies) - ANESTHESIA Hx Anesthesia Reactions: No Hx Malignant Hyperthermia: No Meds Allergies/Adverse Reactions: Allergies Allergy/AdvReac Type Severity Reaction Status Date / Time No Known Allergies Allergy Verified 11/01/15 19:29 - Medications Medications: Current Medications Aspirin (Aspirin Chewable) 81 mg PO DAILY [facility] Last Admin: 08/28/18 10:56 Dose: 81 mg Atorvastatin Calcium (Lipitor) 10 mg PO DIN [facility] Heparin Sodium (Porcine) (Heparin) 5,000 units SC Q12 [facility]; Protocol Last Admin: 08/28/18 10:56 Dose: 5,000 units Sodium Chloride (Sodium Chloride 0.9%) 1,000 mls @ 100 mls/hr IV .Q10H [facility] Last Admin: 08/28/18 09:53 Dose: 100 mls/hr Levothyroxine Sodium (Synthroid) 50 mcg PO QOTHERDAY@06 [facility] Last Admin: 08/28/18 05:40 Dose: 50 mcg Levothyroxine Sodium (Synthroid) 75 mcg PO QOTHERDAY@06 [facility] Pantoprazole Sodium (Protonix Ec Tab) 40 mg PO 06 [facility] Last Admin: 08/28/18 05:40 Dose: 40 mg Zolpidem Tartrate (Ambien) 5 mg PO HS PRN; Protocol PRN Reason: Sleep Physical Exam - Constitutional Appears: Well - Head Exam Head Exam: ATRAUMATIC, NORMAL INSPECTION, NORMOCEPHALIC - Eye Exam Eye Exam: EOMI, Normal appearance, PERRL Pupil Exam: NORMAL ACCOMODATION, PERRL - ENT Exam ENT Exam: Mucous Membranes Moist, Normal Exam - Neck Exam Neck exam: Positive for: Normal Inspection - Respiratory Exam Respiratory Exam: Clear to Auscultation Bilateral, NORMAL BREATHING PATTERN - Cardiovascular Exam Cardiovascular Exam: REGULAR RHYTHM - GI/Abdominal Exam GI & Abdominal Exam: Normal Bowel Sounds, Soft. absent: Tenderness - Extremities Exam Extremities exam: Positive for: normal inspection - Back Exam Back exam: NORMAL INSPECTION - Neurological Exam Neurological exam: Alert, CN II-XII Intact, Normal Gait, Oriented x3, Reflexes Normal - Psychiatric Exam Psychiatric exam: Normal Affect, Normal Mood - Skin Skin Exam: Dry, Intact, Normal Color, Warm Results - Vital Signs Recent Vital Signs: Last Vital Signs Temp 98.0 F 08/28/18 06:00 Pulse 68 08/28/18 06:00 Resp 19 08/28/18 06:00 BP 127/68 08/28/18 06:00 Pulse Ox 99 08/28/18 06:00 - Labs Result Diagrams: 08/28/18 05:55 08/28/18 05:55 Labs: Laboratory Results - last 24 hr 08/27/18 08/27/18 08/27/18 17:59 18:15 18:15 WBC 11.3 H RBC 4.38 Hgb 12.9 Hct 38.8 MCV 88.6 MCH 29.5 MCHC 33.2 RDW 13.2 Plt Count 239 MPV 9.2 Neut % (Auto) 78.7 H Lymph % (Auto) 13.3 L Elbert % (Auto) 7.2 H Eos % (Auto) 0.4 L Baso % (Auto) 0.4 Lymph # (Auto) 1.5 Elbert # (Auto) 0.8 H Eos # (Auto) 0.0 Baso # (Auto) 0.05 Absolute Neuts (auto) 8.89 H PT INR APTT pO2 VBG pH VBG pCO2 VBG HCO3 VBG Total CO2 VBG O2 Sat (Calc) VBG Base Excess VBG Potassium Sodium 140 Chloride 101 Glucose Lactate FiO2 Potassium 3.2 L Carbon Dioxide 30 Anion Gap 13 BUN 14 Creatinine 0.6 L Est GFR ( Amer) > 60 Est GFR (Non-Af Amer) > 60 POC Glucose (mg/dL) 142 H Random Glucose 155 H Calcium 9.9 Phosphorus Magnesium 2.0 Total Bilirubin 0.5 AST 33 ALT 16 Alkaline Phosphatase 85 Troponin I < 0.01 Total Protein 9.0 H Albumin 5.2 H Globulin 3.8 Albumin/Globulin Ratio 1.3 Triglycerides Cholesterol LDL Cholesterol Direct HDL Cholesterol Lipase 154 TSH 3rd Generation Venous Blood Potassium Urine Color Urine Appearance Urine pH Ur Specific [place] Urine Protein Urine Glucose (UA) Urine Ketones Urine Blood Urine Nitrate Urine Bilirubin Urine Urobilinogen Ur Leukocyte Esterase Urine RBC Urine WBC Ur Epithelial Cells Amorphous Sediment Influenza Typ A,B (EIA) Blood Type Blood Type Confirm Antibody Screen BBK History Checked 08/27/18 08/27/18 08/27/18 18:15 18:15 18:28 WBC RBC Hgb Hct MCV MCH MCHC RDW Plt Count MPV Neut % (Auto) Lymph % (Auto) Elbert % (Auto) Eos % (Auto) Baso % (Auto) Lymph # (Auto) Elbert # (Auto) Eos # (Auto) Baso # (Auto) Absolute Neuts (auto) PT 12.3 INR 1.11 APTT 33.3 pO2 46 VBG pH 7.36 VBG pCO2 53.0 VBG HCO3 29.9 H VBG Total CO2 31.5 H VBG O2 Sat (Calc) 85.6 H VBG Base Excess 3.2 H VBG Potassium 3.2 L Sodium 143.0 Chloride 103.0 Glucose 153 H Lactate 1.4 FiO2 21.0 Potassium Carbon Dioxide Anion Gap BUN Creatinine Est GFR ( Amer) Est GFR (Non-Af Amer) POC Glucose (mg/dL) Random Glucose Calcium Phosphorus Magnesium Total Bilirubin AST ALT Alkaline Phosphatase Troponin I Total Protein Albumin Globulin Albumin/Globulin Ratio Triglycerides Cholesterol LDL Cholesterol Direct HDL Cholesterol Lipase TSH 3rd Generation 1.58 Venous Blood Potassium 3.2 L Urine Color Urine Appearance Urine pH Ur Specific [place] Urine Protein Urine Glucose (UA) Urine Ketones Urine Blood Urine Nitrate Urine Bilirubin Urine Urobilinogen Ur Leukocyte Esterase Urine RBC Urine WBC Ur Epithelial Cells Amorphous Sediment Influenza Typ A,B (EIA) Blood Type Blood Type Confirm Antibody Screen BBK History Checked 08/27/18 08/27/18 08/28/18 19:10 19:57 00:50 WBC RBC Hgb Hct MCV MCH MCHC RDW Plt Count MPV Neut % (Auto) Lymph % (Auto) Elbert % (Auto) Eos % (Auto) Baso % (Auto) Lymph # (Auto) Elbert # (Auto) Eos # (Auto) Baso # (Auto) Absolute Neuts (auto) PT INR APTT pO2 VBG pH VBG pCO2 VBG HCO3 VBG Total CO2 VBG O2 Sat (Calc) VBG Base Excess VBG Potassium Sodium Chloride Glucose Lactate FiO2 Potassium Carbon Dioxide Anion Gap BUN Creatinine Est GFR ( Amer) Est GFR (Non-Af Amer) POC Glucose (mg/dL) Random Glucose Calcium Phosphorus Magnesium Total Bilirubin AST ALT Alkaline Phosphatase Troponin I < 0.01 Total Protein Albumin Globulin Albumin/Globulin Ratio Triglycerides Cholesterol LDL Cholesterol Direct HDL Cholesterol Lipase TSH 3rd Generation Venous Blood Potassium Urine Color Yellow Urine Appearance Clear Urine pH 7.5 Ur Specific [place] 1.020 Urine Protein Negative Urine Glucose (UA) Negative Urine Ketones 15 H Urine Blood Negative Urine Nitrate Negative Urine Bilirubin Negative Urine Urobilinogen 0.2 Ur Leukocyte Esterase Small H Urine RBC None Urine WBC 10 - 15 H Ur Epithelial Cells 10 - 12 H Amorphous Sediment Trace Influenza Typ A,B (EIA) Negative for flu a/b Blood Type Blood Type Confirm Antibody Screen BBK History Checked 08/28/18 08/28/18 08/28/18 05:55 05:55 06:00 WBC 7.8 D RBC 4.20 Hgb 12.3 Hct 36.9 MCV 87.9 MCH 29.3 MCHC 33.3 RDW 13.1 Plt Count 264 MPV 9.4 Neut % (Auto) 66.8 Lymph % (Auto) 22.0 Elbert % (Auto) 10.2 H Eos % (Auto) 0.4 L Baso % (Auto) 0.6 Lymph # (Auto) 1.7 Elbert # (Auto) 0.8 H Eos # (Auto) 0.0 Baso # (Auto) 0.05 Absolute Neuts (auto) 5.18 PT INR APTT pO2 VBG pH VBG pCO2 VBG HCO3 VBG Total CO2 VBG O2 Sat (Calc) VBG Base Excess VBG Potassium Sodium 140 Chloride 106 Glucose Lactate FiO2 Potassium 3.8 Carbon Dioxide 26 Anion Gap 12 BUN 10 Creatinine 0.6 L Est GFR ( Amer) > 60 Est GFR (Non-Af Amer) > 60 POC Glucose (mg/dL) Random Glucose 102 Calcium 9.6 Phosphorus 3.6 Magnesium 2.1 Total Bilirubin 0.6 AST 27 ALT 13 Alkaline Phosphatase 68 Troponin I < 0.01 Total Protein 7.9 Albumin 4.5 Globulin 3.4 Albumin/Globulin Ratio 1.3 Triglycerides 50 Cholesterol 159 LDL Cholesterol Direct 74 HDL Cholesterol 73 H Lipase TSH 3rd Generation Venous Blood Potassium Urine Color Urine Appearance Urine pH Ur Specific [place] Urine Protein Urine Glucose (UA) Urine Ketones Urine Blood Urine Nitrate Urine Bilirubin Urine Urobilinogen Ur Leukocyte Esterase Urine RBC Urine WBC Ur Epithelial Cells Amorphous Sediment Influenza Typ A,B (EIA) Blood Type AB POSITIVE Blood Type Confirm Antibody Screen Negative BBK History Checked No verified bt 08/28/18 09:00 WBC RBC Hgb Hct MCV MCH MCHC RDW Plt Count MPV Neut % (Auto) Lymph % (Auto) Elbert % (Auto) Eos % (Auto) Baso % (Auto) Lymph # (Auto) Elbert # (Auto) Eos # (Auto) Baso # (Auto) Absolute Neuts (auto) PT INR APTT pO2 VBG pH VBG pCO2 VBG HCO3 VBG Total CO2 VBG O2 Sat (Calc) VBG Base Excess VBG Potassium Sodium Chloride Glucose Lactate FiO2 Potassium Carbon Dioxide Anion Gap BUN Creatinine Est GFR ( Amer) Est GFR (Non-Af Amer) POC Glucose (mg/dL) Random Glucose Calcium Phosphorus Magnesium Total Bilirubin AST ALT Alkaline Phosphatase Troponin I Total Protein Albumin Globulin Albumin/Globulin Ratio Triglycerides Cholesterol LDL Cholesterol Direct HDL Cholesterol Lipase TSH 3rd Generation Venous Blood Potassium Urine Color Urine Appearance Urine pH Ur Specific [place] Urine Protein Urine Glucose (UA) Urine Ketones Urine Blood Urine Nitrate Urine Bilirubin Urine Urobilinogen Ur Leukocyte Esterase Urine RBC Urine WBC Ur Epithelial Cells Amorphous Sediment Influenza Typ A,B (EIA) Blood Type Blood Type Confirm AB POSITIVE Antibody Screen BBK History Checked Assessment & Plan (1) Vertigo Assessment and Plan: Could be due to dehydration, or may be due to viral infection. Exam is non-focal and patient is asymptomatic now. Would consider MRI of the brain without contrast for evaluation of central cause as an outpatient. Thank you for this consultation. Status: Acute
--- NOTE | 2018-08-28 12:22 | CARD ---
APPROVED REPORT Date of service: 08/28/2018 EXAM: Two-dimensional and M-mode echocardiogram with Doppler and color Doppler. INDICATION Dizziness and Vertigo 2D DIMENSIONS Left Atrium (2D)3.5 (1.6-4.0cm)IVSd0.9 (0.7-1.1cm) LVDd3.4 (3.9-5.9cm)PWd0.9 (0.7-1.1cm) LVDs2.2 (2.5-4.0cm)FS (%) 36.7 % LVEF (%)67.6 (>50%) M-Mode DIMENSIONS Aortic Root2.20 (2.2-3.7cm)Aortic Cusp Exc.1.30 (1.5-2.0cm) Aortic Valve AoV Peak Gynkwfsd658.0cm/Mel Peak GR.9mmHg Mitral Valve MV E Hgwcxlrr664.0cm/sMV A Bbqkmtit80.5cm/sE/A ratio1.1 TDI E/Lateral E'0.0E/Medial E'0.0 Tricuspid Valve TR Peak [id number] [id number] Peak Gr.32mmHg [id number] LEFT VENTRICLE The left ventricle is normal size. The left ventricular function is normal. The left ventricular ejection fraction is within the normal range.Ej.Fr: 68%. RIGHT VENTRICLE The right ventricle is normal size. There is normal right ventricular wall thickness. ATRIA The left atrium size is normal. The right atrium size is normal. AORTIC VALVE The aortic valve is normal in structure. MITRAL VALVE The mitral valve is normal in structure. Mitral regurgitation is trace. TRICUSPID VALVE The tricuspid valve is normal in structure. There is trace tricuspid regurgitation. PERICARDIAL EFFUSION Trace Posterior Pericardial Effusion. <Conclusion> The left ventricle is normal size. The left ventricular function is normal. The left ventricular ejection fraction is within the normal range.Ej.Fr: 68%. The right ventricle is normal size. There is normal right ventricular wall thickness. The left atrium size is normal. The right atrium size is normal. The aortic valve is normal in structure. The mitral valve is normal in structure. Mitral regurgitation is trace. Tricuspid Valve Normal. Trace Tricuspid [place].
[2018-08-29 00:59] VITALS: RESP 20; O2SAT 95
[2018-08-29] MEDS ORDERED: Levothyroxine 75 MCG TAB PO SCH (06:00)
[2018-08-29] MEDS: Pantoprazole 40 mg EC Tab PO SCH (06:01)
--- NOTE | 2018-08-29 07:09 | CP.PCM.PN ---
Subjective - Date & Time of Evaluation Date of Evaluation: 08/29/18 Time of Evaluation: 07:09 Objective - Vital Signs/Intake and Output Vital Signs (last 24 hours): Temp Pulse Resp BP Pulse Ox 97.8 F 74 20 115/51 L 95 08/29/18 05:43 08/29/18 05:43 08/29/18 05:43 08/29/18 05:43 08/29/18 05:43 Intake and Output: 08/29/18 08/29/18 06:59 18:59 Intake Total 2838 Balance 2838 - Medications Medications: Current Medications Aspirin (Aspirin Chewable) 81 mg PO DAILY [facility] Last Admin: 08/28/18 10:56 Dose: 81 mg Atorvastatin Calcium (Lipitor) 10 mg PO DIN [facility] Last Admin: 08/28/18 16:47 Dose: 10 mg Heparin Sodium (Porcine) (Heparin) 5,000 units SC Q12 [facility]; Protocol Last Admin: 08/28/18 22:19 Dose: 5,000 units Sodium Chloride (Sodium Chloride 0.9%) 1,000 mls @ 100 mls/hr IV .Q10H [facility] Last Admin: 08/28/18 22:26 Dose: 100 mls/hr Levothyroxine Sodium (Synthroid) 50 mcg PO QOTHERDAY@0600 [facility] Last Admin: 08/28/18 05:40 Dose: 50 mcg Levothyroxine Sodium (Synthroid) 75 mcg PO QOTHERDAY@0600 [facility] Last Admin: 08/29/18 06:01 Dose: 75 mcg Pantoprazole Sodium (Protonix Ec Tab) 40 mg PO 0600 [facility] Last Admin: 08/29/18 06:01 Dose: 40 mg Zolpidem Tartrate (Ambien) 5 mg PO HS PRN; Protocol PRN Reason: Sleep - Labs Labs: 08/28/18 05:55 08/28/18 05:55 PT 12.3 SECONDS (9.4-12.5) 08/27/18 18:28 INR 1.11 08/27/18 18:28 APTT 33.3 Seconds (26.9-38.3) 08/27/18 18:28
[2018-08-29 07:12] LABS: ALB/GLOB RATIO 1.3 (1.1-1.8); ALBUMIN 4.2 g/dL (3.0-4.8); ALT/SGPT 8 U/L (7-56); AST/SGOT 40 U/L (14-36); BLOOD UREA NITROGEN 12 mg/dL (7-21); CALCIUM 9.1 mg/dL (8.4-10.5); GFR NON-AFRICAN AMERICAN > 60
[2018-08-29 07:13] LABS: BASO # 0.05 K/mm3 (0.0-2.0); BASO % 0.8 % (0.0-3.0); EOS # 0.2 (0.0-0.7); EOS % 2.6 % (1.5-5.0); HEMOGLOBIN 11.8 g/dL (12.0-16.0); LYMPH # 2.6 (1.2-3.4); LYMPH % 41.4 % (22.0-35.0); MEAN CELL VOLUME 88.7 fl (80.0-105.0); MEAN CORPUSCULAR HEMOGLOBIN 28.9 pg (25.0-35.0); MEAN CORPUSCULAR HGB CONC 32.6 g/dl (31.0-37.0); MEAN PLATELET VOLUME 9.7 fl (7.0-11.0); MONO # 0.8 (0.1-0.6); MONO % 12.2 % (1.0-6.0); RBC 4.08 10^6/uL (3.5-6.1); RED CELL DISTRIBUTION WIDTH 13.4 % (11.5-14.5); WHITE BLOOD COUNT 6.2 10^3/uL (4.5-11.0)
[2018-08-29] MEDS ORDERED: Potassium Chloride 20 mEq ER Tab PO STA (08:26)
[2018-08-29] MEDS: Sodium Chloride 0.9% 1,000 ML IV SCH (09:55)
--- NOTE | 2018-08-29 11:29 | MRI ---
Date of service: 08/29/2018 PROCEDURE: MRI BRAIN WITHOUT CONTRAST HISTORY: r/o cva or malgnancy COMPARISON: 11/02/2015 MRI TECHNIQUE: Multiplanar, multisequence MR images of the brain were obtained without intravenous contrast enhancement. FINDINGS: HEMORRHAGE: None DWI: No evidence of an acute or early subacute infarction. BRAIN PARENCHYMA: No mass effect or edema. There is a focal area of cystic encephalomalacia in the anterior left temporal lobe. There is atrophy with dilatation of the left temporal horn. There is hippocampal atrophy on the left. Chronic microvascular changes are seen in the periventricular white matter. VENTRICLES: Unremarkable. No hydrocephalus. CRANIUM: Unremarkable. ORBITS: Grossly unremarkable. PARANASAL SINUSES/MASTOIDS: Clear VASCULAR SYSTEM: Skull base flow voids intact. OTHER FINDINGS: None. IMPRESSION: No acute intracranial findings
[2018-08-29 13:06] VITALS: BP 125/71; PULSE 71; TEMP 97.1
--- NOTE | 2018-08-29 17:06 | CP.PCM.DIS ---
<DestinyRatnakyler L - Last Filed: 08/29/18 17:07> Provider - Provider Date of Admission: 08/27/18 21:21 Attending physician: Sirisha Garcia DO Primary care physician: Ben Galarza MD Consults: 08/27/18 18:15 Stroke Team Consult Stat Comment: Consulting Provider: Neurohospitalist Consulting Physician: NEUROHOSP Neurohospitalist for Consult: Yoan Izquierdo Neurohospitalist for Consult: Elizabeth Cano Reason for Consult: vertigo 08/28/18 00:53 Social Work Referral Routine Comment: met criteria Physician Instructions: Reason For Exam: baylock score greater than 7 Time Spent in preparation of Discharge (in minutes): 35 Diagnosis - Discharge Diagnosis (1) Orthostatic hypotension Status: Acute (2) Dizziness Status: Resolved Hospital Course - Lab Results Lab Results: Micro Results 08/27/18 22:18 Urine,Clean Catch Urine Culture - Final No Growth (<1,000 CFU/ML) 08/27/18 19:00 Blood Blood Culture - Preliminary NO GROWTH AFTER 24 HOURS 08/27/18 18:15 Blood Blood Culture - Preliminary NO GROWTH AFTER 24 HOURS Most Recent Lab Values WBC 6.2 10^3/uL (4.5-11.0) D 08/29/18 06:20 RBC 4.08 10^6/uL (3.5-6.1) 08/29/18 06:20 Hgb 11.8 g/dL (12.0-16.0) L 08/29/18 06:20 Hct 36.2 % (36.0-48.0) 08/29/18 06:20 MCV 88.7 fl (80.0-105.0) 08/29/18 06:20 MCH 28.9 pg (25.0-35.0) 08/29/18 06:20 MCHC 32.6 g/dl (31.0-37.0) 08/29/18 06:20 RDW 13.4 % (11.5-14.5) 08/29/18 06:20 Plt Count 264 10^3/uL (120.0-450.0) 08/29/18 06:20 MPV 9.7 fl (7.0-11.0) 08/29/18 06:20 Neut % (Auto) 43.0 % (50.0-68.0) L 08/29/18 06:20 Lymph % (Auto) 41.4 % (22.0-35.0) H 08/29/18 06:20 [place] % (Auto) 12.2 % (1.0-6.0) H 08/29/18 06:20 Eos % (Auto) 2.6 % (1.5-5.0) 08/29/18 06:20 Baso % (Auto) 0.8 % (0.0-3.0) 08/29/18 06:20 Lymph # (Auto) 2.6 (1.2-3.4) 08/29/18 06:20 [place] # (Auto) 0.8 (0.1-0.6) H 08/29/18 06:20 Eos # (Auto) 0.2 (0.0-0.7) 08/29/18 06:20 Baso # (Auto) 0.05 K/mm3 (0.0-2.0) 08/29/18 06:20 Absolute Neuts (auto) 2.65 (1.4-6.5) 08/29/18 06:20 PT 12.3 SECONDS (9.4-12.5) 08/27/18 18:28 INR 1.11 08/27/18 18:28 APTT 33.3 Seconds (26.9-38.3) 08/27/18 18:28 pO2 46 mm/Hg (30-55) 08/27/18 18:15 VBG pH 7.36 (7.32-7.43) 08/27/18 18:15 VBG pCO2 53.0 (40-60) 08/27/18 18:15 VBG HCO3 29.9 mmol/l (21-28) H 08/27/18 18:15 VBG Total CO2 31.5 mmol.L (22-28) H 08/27/18 18:15 VBG O2 Sat (Calc) 85.6 % (40-65) H 08/27/18 18:15 VBG Base Excess 3.2 mmol/L (0.0-2.0) H 08/27/18 18:15 VBG Potassium 3.2 mmol/L (3.6-5.2) L 08/27/18 18:15 Sodium 143.0 mmol/L (132-148) 08/27/18 18:15 Chloride 103.0 mmol/L (98-107) 08/27/18 18:15 Glucose 153 mg/dl (65-105) H 08/27/18 18:15 Lactate 1.4 mmol/L (0.7-2.1) 08/27/18 18:15 FiO2 21.0 % 08/27/18 18:15 Sodium 141 mmol/L (132-148) 08/29/18 06:20 Potassium 3.5 mmol/L (3.6-5.0) L 08/29/18 06:20 Chloride 108 mmol/L (98-107) H 08/29/18 06:20 Carbon Dioxide 27 mmol/L (21-33) 08/29/18 06:20 Anion Gap 10 (10-20) 08/29/18 06:20 BUN 12 mg/dL (7-21) 08/29/18 06:20 Creatinine 0.6 mg/dl (0.7-1.2) L 08/29/18 06:20 Est GFR ( Amer) > 60 08/29/18 06:20 Est GFR (Non-Af Amer) > 60 08/29/18 06:20 POC Glucose (mg/dL) 142 mg/dL (65-110) H 08/27/18 17:59 Random Glucose 75 mg/dL (70-110) 08/29/18 06:20 Calcium 9.1 mg/dL (8.4-10.5) 08/29/18 06:20 Phosphorus 3.6 mg/dL (2.5-4.5) 08/28/18 05:55 Magnesium 2.0 mg/dL (1.7-2.2) 08/29/18 09:00 Total Bilirubin 0.7 mg/dL (0.2-1.3) 08/29/18 06:20 AST 40 U/L (14-36) H D 08/29/18 06:20 ALT 8 U/L (7-56) 08/29/18 06:20 Alkaline Phosphatase 50 U/L (38-126) 08/29/18 06:20 Troponin I < 0.01 ng/mL 08/28/18 05:55 Total Protein 7.5 g/dL (5.8-8.3) 08/29/18 06:20 Albumin 4.2 g/dL (3.0-4.8) 08/29/18 06:20 Globulin 3.3 gm/dL 08/29/18 06:20 Albumin/Globulin Ratio 1.3 (1.1-1.8) 08/29/18 06:20 Triglycerides 50 mg/dL (35-160) 08/28/18 05:55 Cholesterol 159 mg/dL (130-200) 08/28/18 05:55 LDL Cholesterol Direct 74 mg/dL (0-129) 08/28/18 05:55 HDL Cholesterol 73 mg/dL (29-60) H 08/28/18 05:55 Lipase 154 U/L (23-300) 08/27/18 18:15 Vitamin B12 320 pg/mL (239-931) 08/28/18 05:50 TSH 3rd Generation 1.58 mIU/mL (0.46-4.68) 08/27/18 18:15 Venous Blood Potassium 3.2 mmol/L (3.6-5.2) L 08/27/18 18:15 Urine Color Yellow (YELLOW) 08/27/18 19:10 Urine Appearance Clear (CLEAR) 08/27/18 19:10 Urine pH 7.5 (4.7-8.0) 08/27/18 19:10 Ur Specific [place] 1.020 (1.005-1.035) 08/27/18 19:10 Urine Protein Negative mg/dL (<30 mg/dL) 08/27/18 19:10 Urine Glucose (UA) Negative mg/dL (NEGATIVE) 08/27/18 19:10 Urine Ketones 15 mg/dL (NEGATIVE) H 08/27/18 19:10 Urine Blood Negative (NEGATIVE) 08/27/18 19:10 Urine Nitrate Negative (NEGATIVE) 08/27/18 19:10 Urine Bilirubin Negative (NEGATIVE) 08/27/18 19:10 Urine Urobilinogen 0.2 E.U./dL (<1 E.U./dL) 08/27/18 19:10 Ur Leukocyte Esterase Small Yolanda/uL (NEGATIVE) H 08/27/18 19:10 Urine RBC None /hpf (0-2) 08/27/18 19:10 Urine WBC 10 - 15 /hpf (0-6) H 08/27/18 19:10 Ur Epithelial Cells 10 - 12 /hpf (0-5) H 08/27/18 19:10 Amorphous Sediment Trace /hpf (NONE) 08/27/18 19:10 Influenza Typ A,B (EIA) Negative for flu a/b (NEGATIVE) 08/27/18 19:57 Blood Type AB POSITIVE 08/28/18 06:00 Blood Type Confirm AB POSITIVE 08/28/18 09:00 Antibody Screen Negative 08/28/18 06:00 BBK History Checked No verified bt 08/28/18 06:00 - Hospital Course Hospital Course: On admission: Patient presents to the emergency department complaining of sudden onset dizziness with associated nausea, vomiting, diarrhea earlier today. Patient was covered in diarrhea and vomit when found by the patient's daughter. Medical team evaluated patient in the ED. Daughter was present at bedside. Patient is awake, alert, and oriented x3. She said her episodes started at 3 pm when she was watching television. Vomiting was non-bilious and non-bloody. She did not have any chest pain, shortness of breath, abdominal pain, back pain, fever, chills, urinary frequency/urgency/dysuria. She does not have any sick contacts. In the ED, her symptoms resolved. She has not had any further episodes of vomiting or diarrhea. She denies any recent antibiotic use. Patient had pre vious admission in 2016 for vertigo and was discharged on meclizine which she stopped taking after one week because her symptoms resolved. During hospital stay: Patient had head CT done which was unremarkable. Abdomen pelvis CT showed extensive diverticulosis, no acute findings. Head neck CTA showed no significant stenosis, 8x14 mm nodule in posterior left upper lobe. EC HO showed EF 67%, normal left ventricular function. Neurology was consulted, recommended to consider MRI. Brain MRI showed no acute intracranial findings. Patient was optimized and discharged with instructions to hold blood pressure medications until followup with primary medical doctor. Discharge Exam - Additional Findings Additional findings: - Constitutional Appears: No Acute Distress - Head Exam Head Exam: ATRAUMATIC, NORMOCEPHALIC - Eye Exam Eye Exam: EOMI, Normal appearance - ENT Exam ENT Exam: Mucous Membranes Moist - Respiratory Exam Respiratory Exam: Clear to Auscultation Bilateral, NORMAL BREATHING PATTERN. absent: Accessory Muscle Use, Rales, Rhonchi, Wheezes - Cardiovascular Exam Cardiovascular Exam: RRR, +S1, +S2. absent: Systolic Murmurs - GI/Abdominal Exam GI & Abdominal Exam: Normal Bowel Sounds, Soft. absent: Distended, Firm, Guarding, Rebound, Rigid, Tenderness - Extremities Exam Extremities exam: Positive for: full ROM, normal capillary refill, normal inspection, pedal pulses present - Back Exam Back exam: NORMAL INSPECTION. absent: CVA tenderness (L), CVA tenderness (R) - Neurological Exam Neurological exam: Alert, CN II-XII Intact, Oriented x3 - Psychiatric Exam Psychiatric exam: Normal Affect, Normal Mood - Skin Skin Exam: Dry, Intact, Normal Color, Warm Discharge Plan - Follow Up Plan Condition: STABLE Disposition: HOME/ ROUTINE Instructions: Heart Healthy Diet, Diverticulitis (DC), Transient Ischemic Attack (DC), Urinary Tract Infection, Adult (DC), Orthostatic Hypotension (DC) Additional Instructions: Please follow up with your primary medical doctor Dr. Galarza within 3-5 days. We holding your Norvasc due to blood pressure being on the lower side, please fo llow up with Dr. Galarza to see if you need to resume it. Return to ED if symptoms return. Referrals: Ben Galarza MD [Primary Care Provider] - <Sirisha Garcia - Last Filed: 09/02/18 13:24> Provider - Provider Date of Admission: 08/27/18 21:21 Attending physician: Sirisha Garcia DO Primary care physician: Ben Galarza MD Consults: 08/27/18 18:15 Stroke Team Consult Stat Comment: Consulting Provider: Neurohospitalist Consulting Physician: NEUROHOSP Neurohospitalist for Consult: Yoan Izquierdo Neurohospitalist for Consult: Elizabeth Cano Reason for Consult: vertigo 08/28/18 00:53 Social Work Referral Routine Comment: met criteria Physician Instructions: Reason For Exam: baylock score greater than 7 Hospital Course - Lab Results Lab Results: Micro Results 08/27/18 19:00 Blood Blood Culture - Final NO GROWTH AFTER 5 DAYS 08/27/18 19:00 Blood Gram Stain - Final TEST NOT PERFORMED 08/27/18 18:15 Blood Blood Culture - Final NO GROWTH AFTER 5 DAYS 08/27/18 18:15 Blood Gram Stain - Final TEST NOT PERFORMED 08/27/18 22:18 Urine,Clean Catch Urine Culture - Final No Growth (<1,000 CFU/ML) Most Recent Lab Values WBC 6.2 10^3/uL (4.5-11.0) D 08/29/18 06:20 RBC 4.08 10^6/uL (3.5-6.1) 08/29/18 06:20 Hgb 11.8 g/dL (12.0-16.0) L 08/29/18 06:20 Hct 36.2 % (36.0-48.0) 08/29/18 06:20 MCV 88.7 fl (80.0-105.0) 08/29/18 06:20 MCH 28.9 pg (25.0-35.0) 08/29/18 06:20 MCHC 32.6 g/dl (31.0-37.0) 08/29/18 06:20 RDW 13.4 % (11.5-14.5) 08/29/18 06:20 Plt Count 264 10^3/uL (120.0-450.0) 08/29/18 06:20 MPV 9.7 fl (7.0-11.0) 08/29/18 06:20 Neut % (Auto) 43.0 % (50.0-68.0) L 08/29/18 06:20 Lymph % (Auto) 41.4 % (22.0-35.0) H 08/29/18 06:20 [place] % (Auto) 12.2 % (1.0-6.0) H 08/29/18 06:20 Eos % (Auto) 2.6 % (1.5-5.0) 08/29/18 06:20 Baso % (Auto) 0.8 % (0.0-3.0) 08/29/18 06:20 Lymph # (Auto) 2.6 (1.2-3.4) 08/29/18 06:20 [place] # (Auto) 0.8 (0.1-0.6) H 08/29/18 06:20 Eos # (Auto) 0.2 (0.0-0.7) 08/29/18 06:20 Baso # (Auto) 0.05 K/mm3 (0.0-2.0) 08/29/18 06:20 Absolute Neuts (auto) 2.65 (1.4-6.5) 08/29/18 06:20 PT 12.3 SECONDS (9.4-12.5) 08/27/18 18:28 INR 1.11 08/27/18 18:28 APTT 33.3 Seconds (26.9-38.3) 08/27/18 18:28 pO2 46 mm/Hg (30-55) 08/27/18 18:15 VBG pH 7.36 (7.32-7.43) 08/27/18 18:15 VBG pCO2 53.0 (40-60) 08/27/18 18:15 VBG HCO3 29.9 mmol/l (21-28) H 08/27/18 18:15 VBG Total CO2 31.5 mmol.L (22-28) H 08/27/18 18:15 VBG O2 Sat (Calc) 85.6 % (40-65) H 08/27/18 18:15 VBG Base Excess 3.2 mmol/L (0.0-2.0) H 08/27/18 18:15 VBG Potassium 3.2 mmol/L (3.6-5.2) L 08/27/18 18:15 Sodium 143.0 mmol/L (132-148) 08/27/18 18:15 Chloride 103.0 mmol/L (98-107) 08/27/18 18:15 Glucose 153 mg/dl (65-105) H 08/27/18 18:15 Lactate 1.4 mmol/L (0.7-2.1) 08/27/18 18:15 FiO2 21.0 % 08/27/18 18:15 Sodium 141 mmol/L (132-148) 08/29/18 06:20 Potassium 3.5 mmol/L (3.6-5.0) L 08/29/18 06:20 Chloride 108 mmol/L (98-107) H 08/29/18 06:20 Carbon Dioxide 27 mmol/L (21-33) 08/29/18 06:20 Anion Gap 10 (10-20) 08/29/18 06:20 BUN 12 mg/dL (7-21) 08/29/18 06:20 Creatinine 0.6 mg/dl (0.7-1.2) L 08/29/18 06:20 Est GFR ( Amer) > 60 08/29/18 06:20 Est GFR (Non-Af Amer) > 60 08/29/18 06:20 POC Glucose (mg/dL) 142 mg/dL (65-110) H 08/27/18 17:59 Random Glucose 75 mg/dL (70-110) 08/29/18 06:20 Calcium 9.1 mg/dL (8.4-10.5) 08/29/18 06:20 Phosphorus 3.6 mg/dL (2.5-4.5) 08/28/18 05:55 Magnesium 2.0 mg/dL (1.7-2.2) 08/29/18 09:00 Total Bilirubin 0.7 mg/dL (0.2-1.3) 08/29/18 06:20 AST 40 U/L (14-36) H D 08/29/18 06:20 ALT 8 U/L (7-56) 08/29/18 06:20 Alkaline Phosphatase 50 U/L (38-126) 08/29/18 06:20 Troponin I < 0.01 ng/mL 08/28/18 05:55 Total Protein 7.5 g/dL (5.8-8.3) 08/29/18 06:20 Albumin 4.2 g/dL (3.0-4.8) 08/29/18 06:20 Globulin 3.3 gm/dL 08/29/18 06:20 Albumin/Globulin Ratio 1.3 (1.1-1.8) 08/29/18 06:20 Triglycerides 50 mg/dL (35-160) 08/28/18 05:55 Cholesterol 159 mg/dL (130-200) 08/28/18 05:55 LDL Cholesterol Direct 74 mg/dL (0-129) 08/28/18 05:55 HDL Cholesterol 73 mg/dL (29-60) H 08/28/18 05:55 Lipase 154 U/L (23-300) 08/27/18 18:15 Vitamin B12 320 pg/mL (239-931) 08/28/18 05:50 TSH 3rd Generation 1.58 mIU/mL (0.46-4.68) 08/27/18 18:15 Venous Blood Potassium 3.2 mmol/L (3.6-5.2) L 08/27/18 18:15 Urine Color Yellow (YELLOW) 08/27/18 19:10 Urine Appearance Clear (CLEAR) 08/27/18 19:10 Urine pH 7.5 (4.7-8.0) 08/27/18 19:10 Ur Specific [place] 1.020 (1.005-1.035) 08/27/18 19:10 Urine Protein Negative mg/dL (<30 mg/dL) 08/27/18 19:10 Urine Glucose (UA) Negative mg/dL (NEGATIVE) 08/27/18 19:10 Urine Ketones 15 mg/dL (NEGATIVE) H 08/27/18 19:10 Urine Blood Negative (NEGATIVE) 08/27/18 19:10 Urine Nitrate Negative (NEGATIVE) 08/27/18 19:10 Urine Bilirubin Negative (NEGATIVE) 08/27/18 19:10 Urine Urobilinogen 0.2 E.U./dL (<1 E.U./dL) 08/27/18 19:10 Ur Leukocyte Esterase Small [place]/uL (NEGATIVE) H 08/27/18 19:10 Urine RBC None /hpf (0-2) 08/27/18 19:10 Urine WBC 10 - 15 /hpf (0-6) H 08/27/18 19:10 Ur Epithelial Cells 10 - 12 /hpf (0-5) H 08/27/18 19:10 Amorphous Sediment Trace /hpf (NONE) 08/27/18 19:10 Influenza Typ A,B (EIA) Negative for flu a/b (NEGATIVE) 08/27/18 19:57 Blood Type AB POSITIVE 08/28/18 06:00 Blood Type Confirm AB POSITIVE 08/28/18 09:00 Antibody Screen Negative 08/28/18 06:00 BBK History Checked No verified bt 08/28/18 06:00 Attending/Attestation - Attestation I have personally seen and examined this patient.: Yes I have fully participated in the care of the patient.: Yes I have reviewed all pertinent clinical information, including history, physical exam and plan: Yes Notes (Text): Please note this DC summary is for 08/29/18 Patient seen and examined by me with resident at approximately 9:55AM and prior to discharge on 08/29/18. Case including discharge plan discussed with resident. Agree with above with following additions/corrections. Patient is an 87 year old female with past medical history significant for hypertension, hyperlipidemia, vertigo, and hypothyroidism that presented to the emergency room with dizziness, nausea, vomiting, and diarrhea. Please see H&P for full details. Patient was found to have dizziness likely secondary to volume loss and dehydration from diarrhea, SIRS, hypokalemia, hypertension, hyperlipidemia, and hypothyroidism. Neurology was following. CT head per radiologist showed no acute intracranial abnormalities. Head and neck CTA per radiologist showed no significant stenosis, 8x14 mm nodule left upper lobe. CT abd/pelvis per radiologist showed no acute intra-abdominal findings, extensive diverticulosis and sigmoid colon with no definite evidence of diverticulitis. Brain MRI showed not acute intracranial findings. Patient was treated with IV fluids. Blood and urine cultures were negative. 2D echo per foundation coordinator showed left ventricle is normal size, left ventricular function is normal, left ventricular ejection fraction is within normal range, EF is 68%, right ventricle is normal size, normal size right ventricular wall thickness, left atrium size is normal, right atrium size is normal, aortic valve is normal in structure, mitral valve is normal size in structure, mitral regurg is trace, tricuspid valve normal, trace tricuspid regurge. Leukocytosis resolved. Dizziness, nausea, vomiting, and diarrhea resolved. Patient was tolerating diet. Patient did have hypokalemia and potassium was replaced. Patient was continued on lipitor for hyperlipidemia. Patient was continued on Synthroid for hypothyroidism. Home Norvasc was stopped as patients blood pressure was on the lower side. Patient was seen by physical therapy who recommended home. Patient was cleared for discharge by neurology. Patient was feeling much better and was discharged home. On the day of discharge, patient stated she was feeling much better. Patient was tolerating diet. No nausea or vomiting. No abdominal pain. Diarrhea resolved. Patient denied chest pain or palpitations. No shortness of breath. Patient denied headaches. No dizziness or lightheadedness. No change in vision. No fevers or chills. No dysuria or burning with urination. Physical exam: General: Awake and alert lying in bed in no acute distress HEENT: Normocephalic, atraumatic. Extraocular muscles intact, pupils equal and reactive, no scleral icterus. Oropharynx is pink moist. No pharyngeal erythema or exudate appreciated. Neck is supple. Cardiovascular: Regular rhythm. Normal S1 and S2. No murmurs, rubs, or gallops appreciated Pulmonary: Normal respiratory effort. No rhonchi, rales, or wheezing appreciated. Gastrointestinal: Soft, nondistended. Nontender. Positive bowel sounds all 4 quadrants. No guarding. Musculoskeletal: Moves all extremities. No calf tenderness. No edema appreciated. Central nervous system: AAOx3. CN 2-12 grossly intact Dermatologic: Skin warm and dry. Please see chart for full details. Follow up instructions: Please follow up with PMD within 3-5 days. All instructions explained to the patient in detail. Patient both understands and agrees to all instructions. Written instructions also given. Time spent in discharging the patient including chart review, medication reconciliation, discussion with the patient, medical review specialist, consultants, and nursing staff was approximately 40 minutes.
== END 2018-08-29 14:20 | disposition home or self-care (01) ==
LOC: ED 17:25 → ERH 21:21 → 2RNO 23:30
PROVIDERS: ADMIT Hospitalist; ATTEND Hospitalist
DX: I95.1 Orthostatic hypotension (principal); R65.10 Systemic inflammatory response syndrome (SIRS) of non-infectious origin without acute organ dysfunction; E87.6 Hypokalemia; E03.9 Hypothyroidism, unspecified; R42 Dizziness and giddiness; E78.5 Hyperlipidemia, unspecified; H91.90 Unspecified hearing loss, unspecified ear; I10 Essential (primary) hypertension; N39.0 Urinary tract infection, site not specified; Z79.82 Long term (current) use of aspirin; Z79.890 Hormone replacement therapy; K52.9 Noninfective gastroenteritis and colitis, unspecified; G47.00 Insomnia, unspecified; Z87.891 Personal history of nicotine dependence; K57.90 Diverticulosis of intestine, part unspecified, without perforation or abscess without bleeding
CPT/HCPCS: 36415; 70450; 70496; 70498; 70551; 71045; 74176; 80053; 80061; 81001; 82607; 82803; 82948; 83690; 83735; 84100; 84443; 84484; 85025; 85610; 85730; 86850; 86900; 87040; 87086; 87804; 93005; 93306; 96365; 96372; 96375; 97116; 97161; 97530; 99285; G0378; G8978; G8979; J0744; J1644; J2765; J3480; J7030; Q9967